=== PATIENT | female | born 1960 | race Caucasian/White ===

== ENCOUNTER → 2023-03-11 | Outpatient (CLI) | payer BC ==
[2023-03-11 15:57] LABS: INR 0.9 (<1.2); Partial Thromboplastin Time 25.4 sec (22.0-30.0); Prothrombin Time 9.8 sec (9.0-12.0)
[2023-03-11 21:42] LABS: HCT 42.2 % (37.2-46.3); HGB 12.6 d/dL (12.0-15.0); MCH 26.5 pg (27.0-32.0); MCHC 29.9 d/dL (32.0-37.0); MCV 88.8 FL (80.0-97.0); Mean Platelet Volume 10.7 FL (9.5-12.2); NRBC Per 100 WBC 0 X 10*3/uL (0.00-0.01); Platelet Count 365 X 10*3/uL (140-440); RBC 4.75 X 10*6/uL (4.10-5.20); RDW 14.7 % (11.5-14.5); WBC 8.75 X 10*3/uL (4.50-10.00)
[2023-03-12 02:37] LABS: ALT 15 U/L (8-44); AST 11 U/L (13-35); Albumin 4.7 d/dL (3.8-4.9); Albumin/Globulin Ratio 1.68 Ratio (1.60-3.17); Alkaline Phosphatase 144 U/L (41-126); Calcium 10.2 mg/dL (8.7-10.3); Carbon Dioxide 29.8 mmol/L (21.6-31.8); Chloride 99 mmol/L (96-109); Globulin 2.8 d/dL (1.6-3.3); Glucose 101 mg/dL (70-110); Potassium 4.1 mmol/L (3.5-5.5); Sodium 143 mmol/L (135-145); Total Bilirubin <0.2 mg/dL (0.3-1.2); Total Protein 7.5 d/dL (6.2-8.2)
== END | disposition home or self-care (01) ==
LOC: LABPAT 13:46
PROVIDERS: ATTEND Orthopaedic Surgery
DX: Z01.812 Encounter for preprocedural laboratory examination (principal); M17.12 Unilateral primary osteoarthritis, left knee; I51.7 Cardiomegaly; R94.31 Abnormal electrocardiogram [ECG] [EKG]
CPT/HCPCS: 80053; 85027; 85610; 85730; 87070; 93005

== ENCOUNTER 2023-03-22 10:05 | Observation (INO) | payer BC ==
[~2023-03-22 10:05] MED LIST: ACETAMINOPHEN TAB 500 MG TAB PO PRN; GABAPENTIN 300 MG CAP PO PRN; HYDROmorphone 0.5 MG/0.5 ML SYRINGE IVP PRN; MELOXICAM 7.5 MG TAB PO PRN; ONDANSETRON 4 MG/2 ML VIAL IVP ONE; TRANEXAMIC 1,000 MG/100ML-NACL 1,000 MG in SALINE 1 100ML.BAG IVPB PRN
[2023-03-22] MEDS: LACTATED RINGERS 1,000 ML IV SCH (11:08)
[2023-03-22] MEDS ORDERED: MIDAZOLAM 2 MG/2 ML VIAL IVP ONE (11:39)
[2023-03-22] MEDS ORDERED: HYDROmorphone 0.5 MG/0.5 ML SYRINGE IVP PRN ×2 (12:08)
[2023-03-22] MEDS ORDERED: HYDROmorphone 1 MG/ML 1 ML SYRINGE IVP PRN (12:08)
[2023-03-22] MEDS ORDERED: ONDANSETRON 4 MG/2 ML VIAL IVP PRN (12:08)
[2023-03-22] MEDS ORDERED: NA PHOS,M-B/NA PHOS,DI-BA 133 ML ENEMA RECTAL PRN (12:08)
[2023-03-22] MEDS ORDERED: bisacodyL 10 MG SUPP RECTAL PRN (12:08)
[2023-03-22] MEDS ORDERED: NALOXONE 0.4 MG/ML 1 ML VIAL IV PRN (12:08)
[2023-03-22] MEDS ORDERED: MAGNESIUM HYDROXIDE 2,400 MG/30 ML CUP PO PRN (12:08)
[2023-03-22] MEDS ORDERED: HYDROcodone/APAP 7.5-325MG 1 EACH TAB PO PRN ×2 (12:10)
[2023-03-22] MEDS ORDERED: KETAMINE 10 MG/ML 20 ML VIAL ONE (12:16)
[2023-03-22] MEDS ORDERED: fentaNYL (PF) 50 MCG/ML 2 ML AMP ONE (12:16)
[2023-03-22] MEDS ORDERED: TRANEXAMIC 1,000 MG/100ML-NACL PREMIX BAG ONE (12:16)
[2023-03-22] MEDS ORDERED: MIDAZOLAM 2 MG/2 ML VIAL ONE (12:16)
[2023-03-22] MEDS ORDERED: PROPOFOL 10 MG/ML 20 ML VIAL IV ONE (12:16)
[2023-03-22] MEDS ORDERED: ceFAZolin 1,000 MG in SODIUM CHLORIDE 0.9% 1,000 ML IRRIGATION ONE (12:21)
--- NOTE | 2023-03-22 13:35 | P.OP ---
Date of Procedure: 03/22/23 Preoperative Diagnosis: Severe osteoarthritis left knee Postoperative Diagnosis: Severe osteoarthritis left knee Procedure(s) Performed: Left total knee arthroplasty Implants: Pereira [employer] Nephew Journey II CR Oxinium cruciate retaining femoral component size 5, left [employer] Journey nonporous tibial baseplate size 3, left [employer] Journey II, XLPE Deep Dished articular insert, size 12 mm, Size 3-4, left [employer] Journey Sandra II resurfacing patellar component, oval, 29 mm All components were cemented using Palacos R bone cement The articulation is Oxinium on polyethylene Anesthesia: spinal Surgeon: Rufino Peña Clinical Advisor #1: Vicenta Guardado Estimated Blood Loss (ml): 30 Pathology: none sent Condition: stable Disposition: PACU Indications for Procedure: The patient's knee is end-stage, and conservative management has failed. The operation of knee replacement has been discussed at length in the office, as well as potential risks and complications. These are inclusive of, but not limited to: Infection, bleeding, scarring, discomfort, stiffness, blood vessel and nerve damage, need for further surgery, failure to relieve symptoms, persistence, recurrence, or worsening of problems, loosening, dislocation, wear, blood clot, pulmonary embolism, , gait dysfunction, stiffness, and other risks as discussed in the office. Patient elects to proceed and the consent form has been signed. Operative Findings: The operative findings are consistent with severe osteoarthritis the left knee Description of Procedure: The patient was seen in the preoperative area, the consent was reviewed and the operative site was marked with a skin marker. The patient verified the procedure and the operative site. An adductor canal pain catheter and an iPACK block were placed by anesthesia in the preoperative area. The patient was then brought to the operating room and positioned on the operating room table in the supine position. Preoperative antibiotics and a gram of tranexamic acid were given intravenously. A spinal anesthetic was administered by the anesthesia department. Care was taken to make sure that all pressure points were adequately padded. A tourniquet was placed on the upper thigh and the lower extremity was prepped with ChloraPrep and draped in usual sterile fashion. A universal time-out was then performed which confirmed the patient's name, surgical site, ALLERGIES, and consent. The lower extremity was then exsanguinated and tourniquet was inflated to 250 mmHg. A standard anterior midline approach to the knee was performed. The skin and subcutaneous tissue were sharply dissected down to the patellar tendon. A medial parapatellar arthrotomy was then performed. The knee was then extended, the patellar was everted, and the knee was flexed. The infra-patellar fat pad was removed in order to enhance exposure. The anterior horns of both menisci were excised, and a release was performed to the posterior medial aspect of the knee. On gross visual inspection, there was complete loss of articular cartilage in the medial and patellofemoral joint spaces. There was also significant cartilage damage in the lateral compartment. There were multiple periarticular osteophytes globally about the knee which were then removed with a Ronguer. The femoral canal was then opened with the 9.5 mm intramedullary drill. The 8 mm intramedullary alla was then inserted into the femoral canal with the distal femoral cutting guide set for 5 of valgus. The distal femoral cutting block was then pinned in place. The intramedullary alla was then removed, and the distal femur was then cut. The cutting block was then removed and the cut was checked for symmetry. The resected bone was then measured to c onfirm the appropriate distal femoral resection. Next, the sizing guide was then placed and set for 3 external rotation based off of the epicondylar axis and [place]'s line. Pins were then placed and the drill holes, and the femur was sized with the sizing stylus. The pins were then removed, and the sizing guide was then removed. The spikes of the appropriate size femoral block was then placed into the predrilled holes, and malleted into place. Two 45 mm pins were then placed into the fixation holes on the cutting block. An cami wing was then used to ensure there would be no notching with the anterior cut. The anterior condyles were cut without notching. The anterior chord cut was then performed, followed by the posterior cut, posterior chamfer cut, and the anterior chamfer cut. The collateral ligaments were protected during the entire process. The cutting block was then removed. Any remaining bone and osteophytes were removed from the femur with a Ronguer. Attention was then directed to the tibia. The remaining ACL was removed with a Ronguer, and the tibia was then gently subluxed forward with a large bent knee retractor. Any remaining menisci were excised. The posterior lateral corner was cauterized in order to coagulate the lateral geniculate artery. The extra medullary tibial cutting guide was then placed, set for the appropriate rotation, slope, and depth of resection. The proximal tibia cutting guide was then pinned in place. Proximal tibia was then cut and sized. A curved osteotome was then used to remove any posterior osteophytes from the distal femur. The femoral trial was placed. A narrow saw blade was then used to remove the anterior intracondylar femoral bone. The CR notch trial was then placed. The tibial trial was placed with the appropriate-sized insert. The knee was able to fully extend and flex to 130 and was stable throughout all range of motion. The knee was then extended and the patella was everted. Patella was then measured, and then using an osteotomy guide, the patella was cut at the appropriate level. The patellar component was sized. The patellar drill guide was placed and the patella was drilled. The patella trial was then placed. The knee was then taken through range of motion with the patella trial and the patella tracked normally using the no thumbs technique. The patella trial was then removed. The knee was then flexed and lug holes were drilled through the femoral trial and the femoral trial was then removed. The tibial was then re- exposed, and the tibial broach guide was then pinned in place after it was set for the appropriate rotation to allow for the most coverage without overhang. The tibia was then reamed and broached. The femoral canal was plugged with autologous bone. The cut surfaces of bone were then irrigated with pulsatile lavage. The knee was also irrigated with Irrisept solution. The components were then opened, the cement was mixed. Cement was placed on the backside of the femoral, tibial, and patellar components. Cement was then applied to the tibial surface and pressurized into the surface using finger pressurization technique. The tibial component was then applied and excess cement was removed after it was impacted securely noted to be flush with the cut surface. In similar fashion, the cement was applied to the cut femoral surface, pressurized and using finger pressurization the component was impacted in place. Excess cement was removed. The polyethylene spacer was then implanted and locked into position. Patellar component was then applied in a similar technique and the patellar clamp was used to hold patella in place while the cement hardened. The knee was held in full extension while the cement hardened. Once the cement had fully hardened, the knee was reinspected. Any other cement extrusion was removed the final range of motion testing showed range of motion from 0-130 with excellent stability, both medial and laterally and appropriate alignment of the leg. Patella tracked normally. After the cemented hardened, the tourniquet was released and hemostasis was obtained. A second gram of transexamic acid was given intravenously. The knee was again irrigated. The knee was again taken through range of motion and found to be stable throughout all range of motion of 0-130, and the patella tracked normally. The fascia was then closed with 0 Vicryl followed by #2 strata fix suture. The subcutaneous tissue was closed with 3-0 Vicryl and 3-0 strata fix. Exofin glue was used for the skin and placed with the knee in flexion. After the glue had dried, and Optafoam silver impregnated dressing was applied. A lightly compressive dressing was applied using web roll and Roshan wrap. Patient was then transferred to the stretcher and taken to recovery room in stable condition. Sponge and needle counts were correct. The bookkeeping assistant MAX Higginbotham was required due the complexity surgery and the need for a skilled regional vice president surgical sales. She assisted in positioning, draping, retraction, and closure of the wound.
[2023-03-22] MEDS ORDERED: LACTATED RINGERS 1,000 ML IV ONE (14:05)
[2023-03-22] MEDS ORDERED: ROPIVACAINE 1,100 MG, SODIUM CHLORIDE 0.9% 500 ML 330 ML, EMPTY PAIN BALL 1 EACH MISCELLANE PRN ×2 (14:24)
--- NOTE | 2023-03-22 14:49 | P.ANPRN ---
Procedure Note - Anesthesia - Nerve Block Performed Left Adductor Canal Infusion Time Out Performed: Yes Date of Procedure: 03/22/23 Procedure Start Time: 11:38 Procedure Stop Time: 11:48 Location of Patient: PreOp Indication: Acute Post-Operative Pain, Analgesia, Requested by Surgeon Sedation Type: Sedate with meaningful contact maintained Preparation: Sterile Prep Position: Supine Catheter: Indwelling Needle Types: Pajunk Needle Gauge: 21 Ultrasound used to visualize needle placement: Yes Ultrasound used to observe medication spread: Yes Injectate: 0.5% Ropivacaine (see comment for volume) (20cc) Blood Aspirated: No Pain Paresthesia on Injection Noted: No Resistance on Injection: Normal Image Stored and Saved: Yes Events: Uneventful and Well Tolerated
[2023-03-22] MEDS: SODIUM CHLORIDE 0.9% 1,000 ML IV SCH (15:31)
--- NOTE | 2023-03-22 16:31 | XR ---
EXAMINATION TYPE: XR knee limited LT DATE OF EXAM: 03/22/2023 4:19 PM INDICATION: Patient age:Female; 63 years old; Reason for study: Evaluation for Postop abnormality and alignment; COMPARISON: None. TECHNIQUE: The Left knee(s) was examined in Frontal, lateral and oblique projections. FINDINGS: Status post total knee arthroplasty changes with hardware in appropriate alignment and in tact. No evidence of fracture. Subcutaneous lucencies and lucencies within the joint consistent with surgical changes. IMPRESSION: Status post total knee arthroplasty changes with hardware intact and appropriate alignment. No fractu res identified.
--- NOTE | 2023-03-22 17:04 | P.CONS ---
History of Present Illness - Reason for Consult Consult date: 03/22/23 Requesting physician: Rufino Peña - History of Present Illness Patient is a 63-year-old female with a history of hypothyroidism, hypertension, asthma, fibromyalgia, and osteoarthritis who presented for elective left total knee arthroplasty. Patient seen and examined at bedside. She is doing well postoperatively. Preoperatively she was using a walking stick for long distances. She denies any lightheadedness, dizziness, nausea, vomiting. Pain is well controlled though her leg is still asleep. Vital signs reviewed General: nontoxic, no distress, appears at stated age Derm: warm, dry Eyes: EOMI, no lid lag, anicteric sclera, pupils equal round reactive to light ENT: Nose and ears atraumatic, no thrush, no pharyngeal erythema Cardiovascular: S1S2 reg, no murmur, positive posterior tibial pulse bilateral, Lungs: Decreased breath sounds bilateral, no rhonchi, no rales, no wheeze, no accessory muscle use Ext: no gross muscle atrophy, no contractures, compression stockings in place bilateral lower extremities Neuro: CN II-XII grossly intact, no focal neuro deficits Psych: Alert, oriented, appropriate affect Assessment: 63-year-old female status post left total knee arthroplasty Hypertension -Currently controlled -Resume home HCTZ 25 mg daily, spironolactone 25 mg daily, losartan 25 mg daily -Follow blood pressures Hypothyroidism -Resume Synthroid 50 g daily GERD -Resume PPI Chronic: Fibromyalgia Depression Asthma without exacerbation Imaging: Left knee x-ray: Status post total knee Data Review: Vitals reviewed pulse 71, respirations 17, blood pressure 145/72, O2 sats 94% on room air Labs reviewed hemoglobin 12.6, hematocrit 42.2, creatinine 1, glucose 101 Thank you for allowing us to participate in the care of this pleasant patient. Do not hesitate to contact us with questions. Someone can be reached from the [facility] hospitalist group all hours of the day at [phone] or via [employer]. This dictation was prepared using [employer] voice recognition software. Though every attempt is made to correct errors during dictation some may still exist. Past Medical History Past Medical History: Fibromyalgia Additional Past Medical History / Comment(s): restless leg ,chest pain told not her heart, History of Any Multi-Drug Resistant Organisms: None Reported Past Surgical History: Cholecystectomy, Hysterectomy Additional Past Surgical History / Comment(s): colonsoscopy Past Anesthesia/Blood Transfusion Reactions: No Reported Reaction Additional Past Anesthesia/Blood Transfusion Reaction / Comm: no blood tx hx Past Psychological History: Depression Smoking Status: Never smoker Past Alcohol Use History: None Reported Past Drug Use History: None Reported - Past Family History Brother(s) Family Medical History: Cancer Additional Family Medical History / Comment(s): lung Medications and Allergies Home Medications Medication Instructions Recorded Confirmed Type DULoxetine HCL [Cymbalta] 60 mg PO DAILY 03/14/23 03/22/23 History Esomeprazole Magnesium [NexIUM] 20 mg PO DAILY 03/14/23 03/22/23 History Artur Restful Leg(Ukn) 1 tab PO HS 03/14/23 03/22/23 History Levothyroxine Sodium [Synthroid] 50 mcg PO DAILY 03/14/23 03/22/23 History Losartan Potassium [Cozaar] 25 mg PO DAILY 03/14/23 03/22/23 History Montelukast [Singulair] 10 mg PO HS 03/14/23 03/22/23 History Spironolactone 25 mg PO HS 03/14/23 03/22/23 History hydroCHLOROthiazide 25 mg PO DAILY 03/14/23 03/22/23 History lamoTRIgine [LaMICtal] 300 mg PO DAILY 03/14/23 03/22/23 History Aspirin 325 mg PO BID #60 tab 03/22/23 Rx HYDROcodone/APAP 7.5-325MG [[place] 1 - 2 tab PO Q6H PRN #32 tab 03/22/23 Rx 7.5-325] Sennosides [Senokot] 2 tab PO DAILY PRN #60 tablet 03/22/23 Rx Allergies Allergy/AdvReac Type Severity Reaction Status Date / Time methylprednisolone Allergy Rash/Hives Verified 03/22/23 10:40 [From Medrol] azithromycin AdvReac Rash/Hives Verified 03/22/23 10:40 Penicillins AdvReac Rash/Hives Verified 03/22/23 10:40 Physical Exam Osteopathic Statement: *. No significant issues noted on an osteopathic structural exam other than those noted in the History and Physical/Consult. Vitals: Vital Signs Temp Pulse Resp BP Pulse Ox 03/22/23 14:50 71 17 145/72 94 L 03/22/23 14:48 97.6 F 67 17 118/80 98 03/22/23 14:35 69 19 150/84 95 03/22/23 14:20 62 16 140/81 96 03/22/23 14:05 97 F L 78 14 134/77 99 03/22/23 11:50 74 16 130/58 98 03/22/23 11:00 97.4 F L 81 16 144/69 98 Intake and Output 03/22/23 03/22/23 03/22/23 06:59 14:59 22:59 Intake Total 551 Output Total 30 Balance 521 Intake: IV 551 Output: Estimated Blood Loss 30 Other: Weight 111.3 kg
[2023-03-22] MEDS: ASPIRIN 325 MG TAB PO SCH (19:58)
[2023-03-22] MEDS ORDERED: LOSARTAN 25 MG TAB PO SCH (21:00)
[2023-03-22] MEDS ORDERED: SPIRONOLACTONE 25 MG TAB PO SCH (21:00)
[2023-03-22] MEDS ORDERED: [UNRECOGNIZED DRUG - OTHER] PO SCH (21:00)
[2023-03-22] MEDS ORDERED: DULoxetine HCL 60 MG CAPSULE.DR PO SCH (21:00)
[2023-03-22] MEDS ORDERED: MONTELUKAST 10 MG TAB PO SCH (21:00)
[2023-03-22] MEDS ORDERED: SENNOSIDES-DOCUSATE SODIUM 1 EACH TAB PO SCH (21:00)
[2023-03-22] MEDS: lamoTRIgine 100 MG TAB PO SCH (21:35)
[2023-03-22] MEDS ORDERED: HYDROcodone/APAP 7.5-325MG 1 EACH TAB ONE (23:41)
[2023-03-23] MEDS ORDERED: HYDROmorphone 0.5 MG/0.5 ML SYRINGE ONE (02:26)
[2023-03-23] MEDS ORDERED: HYDROmorphone 1 MG/ML 1 ML SYRINGE ONE (02:26)
[2023-03-23] MEDS: SODIUM CHLORIDE 0.9% 1,000 ML IV SCH (05:17)
[2023-03-23] MEDS ORDERED: LEVOTHYROXINE 50 MCG TAB PO SCH (06:30)
[2023-03-23] MEDS: LACTATED RINGERS 1,000 ML IV SCH (07:20)
--- NOTE | 2023-03-23 07:41 | P.DS ---
Providers Expected date of discharge: 03/23/23 Attending physician: Rufino Peña Consults: 03/22/23 12:08 Consult Physician Routine Consulting Provider: Sidra Sow Consult Reason/Comments: medical management Do you want consulting provider notified?: Yes Primary care physician: Essence Jhaveri MD - Discharge Diagnosis(es) (1) Primary localized osteoarthritis of left knee Current Visit: Yes Status: Acute (2) Status post total left knee replacement Current Visit: Yes Status: Acute Hospital Course: This is a 63-year-old female who was last seen with complaint of continued left knee pain. The patient has a known history of degenerative arthritis of the left knee and presents to discuss surgical options. After discussion and consideration the patient elects to proceed with total left knee arthroplasty. The patient is seen preoperatively by her primary care physician and cleared for surgery. The patient is admitted to [facility] for total left knee arthroplasty. The procedures performed without complication or sequelae. He is doing well postoperatively. Vital signs are stable at discharge. Labs are stable at discharge. the patient is ambulating well with walker with minimal assistance. The patient is discharged to home on postop day #1 pending medical clearance. Please see orders and refer to the med rec for accurate list of medications. Patient Condition at Discharge: Good Plan - Discharge Summary Discharge Rx Participant: No New Discharge Prescriptions: New Ketorolac [Toradol] 10 mg PO Q6HR PRN #20 tab PRN Reason: Pain Aspirin 325 mg PO BID #60 tab HYDROcodone/APAP 7.5-325MG [[place] 7.5-325] 1 - 2 tab PO Q6H PRN #32 tab PRN Reason: Pain Sennosides [Senokot] 2 tab PO DAILY PRN #60 tablet PRN Reason: Constipation No Action hydroCHLOROthiazide 25 mg PO DAILY Spironolactone 25 mg PO HS Esomeprazole Magnesium [NexIUM] 20 mg PO DAILY DULoxetine HCL [Cymbalta] 60 mg PO DAILY Montelukast [Singulair] 10 mg PO HS Levothyroxine Sodium [Synthroid] 50 mcg PO DAILY lamoTRIgine [LaMICtal] 300 mg PO DAILY Losartan Potassium [Cozaar] 25 mg PO DAILY Artur Restful Leg(Ukn) 1 tab PO HS Discharge Medication List DULoxetine HCL [Cymbalta] 60 mg PO DAILY 03/14/23 [History] Esomeprazole Magnesium [NexIUM] 20 mg PO DAILY 03/14/23 [History] Artur Restful Leg(Ukn) 1 tab PO HS 03/14/23 [History] Levothyroxine Sodium [Synthroid] 50 mcg PO DAILY 03/14/23 [History] Losartan Potassium [Cozaar] 25 mg PO DAILY 03/14/23 [History] Montelukast [Singulair] 10 mg PO HS 03/14/23 [History] Spironolactone 25 mg PO HS 03/14/23 [History] hydroCHLOROthiazide 25 mg PO DAILY 03/14/23 [History] lamoTRIgine [LaMICtal] 300 mg PO DAILY 03/14/23 [History] Aspirin 325 mg PO BID #60 tab 03/22/23 [Rx] HYDROcodone/APAP 7.5-325MG [[place] 7.5-325] 1 - 2 tab PO Q6H PRN #32 tab 03/22/23 [Rx] Sennosides [Senokot] 2 tab PO DAILY PRN #60 tablet 03/22/23 [Rx] Ketorolac [Toradol] 10 mg PO Q6HR PRN #20 tab 03/23/23 [Rx] Follow up Appointment(s)/Referral(s): Rufino Peña DO [Doctor of Osteopathic Medicine] - 2 Weeks Activity/Diet/Wound Care/Special Instructions: Weightbearing as tolerated with a walker. CPM 5-6h daily as tolerated. Leave dressing intact. Dressing may be removed by home care nurse or by patient in 7 days. Then change dressing twice daily until follow up. May shower with initial dressing intact and after removal. If dressing become saturated, please remove. Recommend use of compression stockings daily until follow up to help prevent swelling and blood clots. May remove at night before sleeping. Please take aspirin 325mg twice daily for 30 days to prevent blood clots. Please follow up with [facility] and call with any questions or concerns, . Discharge Disposition: HOME WITH HOME HEALTH SERVICES
[2023-03-23 07:43] VITALS: BP 132/70; PULSE 87; RESP 18; TEMP 98.2
--- NOTE | 2023-03-23 07:46 | P.PN ---
Progress Note - Text Progress Note Date: 03/23/23 patient was seen and evaluated at bedside. Status post postoperative day 1 for left side total knee arthroplasty patient had adductor canal catheter for postop pain control. Patient rated pain at rest 5-6 out of 10 in severity. Patient describes pain is aching, throbbing type on the sides of the knee and back of the knee. Patient started walking with support. With activity patient pain levels are 8-9 out of 10 in severity. With the help of oral pain medications pain levels are tolerable. Patient denied any weakness/ numbness in lower extremities. patient denied any fever, pain over the catheter site. Physical exam: Patient vital signs stable Patient is alert awake oriented 3 responding to all questions appropriately Examination of the catheter site showed dressing intact, no leaking fluid around the catheter, no redness, no tenderness over the catheter insertion area. plan: status post postoperative day 1 for left-sided total knee arthroplasty with adductor canal catheter for pain control. Patient was discussed to continue the medication at the rate of 8 mL per hour until the pump is completely empty and instructed the patient how to discontinue the catheter.
[2023-03-23 08:19] LABS: HCT 35.5 % (34.0-46.0); HGB 11.1 gm/dL (11.4-16.0); Hypochromasia Moderate; MCH 27.3 pg (25.0-35.0); MCHC 31.2 g/dL (31.0-37.0); MCV 87.6 fL (80.0-100.0); Mean Platelet Volume 8.1; Platelet Count 261 k/uL (150-450); RBC 4.05 m/uL (3.80-5.40); RDW 14.4 % (11.5-15.5); WBC 8.9 k/uL (3.8-10.6)
[2023-03-23] MEDS: lamoTRIgine 100 MG TAB PO SCH (08:25)
[2023-03-23] MEDS: ASPIRIN 325 MG TAB PO SCH (08:25)
[2023-03-23] MEDS ORDERED: hydroCHLOROthiazide 25 MG TAB PO SCH (09:00)
[2023-03-23] MEDS ORDERED: lamoTRIgine 100 MG TAB PO SCH (09:00)
[2023-03-23] MEDS ORDERED: LOSARTAN 25 MG TAB PO SCH (09:00)
[2023-03-23] MEDS ORDERED: DULoxetine HCL 60 MG CAPSULE.DR PO SCH (09:00)
[2023-03-23] MEDS ORDERED: PANTOPRAZOLE 40 MG TABLET PO SCH (09:00)
--- NOTE | 2023-03-23 10:14 | P.PN ---
Subjective Progress Note Date: 03/23/23 Patient is a 63-year-old female with a history of hypothyroidism, hypertension, asthma, fibromyalgia, and osteoarthritis who presented for elective left total knee arthroplasty. Patient seen and examined at bedside. She is doing okay this morning. She has already been up to the bathroom. Currently her pain is a 3-4 out of 10 last night she had difficulty sleeping because it was closer to an 8 out of 10. She has not yet worked with physical therapy. She denies any chest pain, shortness breath, nausea, vomiting. We discussed that she will be on aspirin twice daily as DVT prophylaxis for 30 days and that this may exacerbate her acid reflux symptoms that she can up her Nexium to 40 mg twice daily as needed. Vital signs reviewed General: nontoxic, no distress, appears at stated age Cardiovascular: S1S2 reg, no murmur, positive posterior tibial pulse bilateral, Lungs: Decreased breath sounds bilateral, no rhonchi, no rales , no accessory muscle use Ext: no gross muscle atrophy, trace edema left lower extremity, no contractures Neuro: CN II-XI grossly intact, no focal neuro deficits Psych: Alert, oriented, appropriate affect Assessment/plan: 63-year-old female status post left total knee arthroplasty Hypertension -Currently controlled -Continue home HCTZ 25 mg daily, spironolactone 25 mg daily, losartan 25 mg daily -Follow blood pressures Hypothyroidism -Synthroid 50 g daily GERD - On discharge Nexium can be increased to 40 mg twice daily as needed or can take pepcid id GERD symptoms increase with ASA. - Discharge med rec addressed. Patient medically optimized for discharge at the discretion of ortho. Instructions added to D/C to increase nexium if needed. Chronic: Fibromyalgia Depression Asthma without exacerbation Imaging: None new Data Review: Vital signs reviewed. Temperature 98.2, pulse 87, respirations 18, blood p ressure 132/70, O2 sat 91% on room air. Laboratory analysis reviewed and remarkable for hemoglobin of 11.1 (down from 12.6). Thank you for allowing us to participate in the care of this pleasant patient. Do not hesitate to contact us with questions. Someone can be reached from the [facility] hospitalist group all hours of the day at [phone] or via [employer]. This dictation was prepared using [employer] voice recognition software. Though every attempt is made to correct errors during dictation some may still exist. Objective - Vital Signs Vital signs: Vital Signs Temp 98.2 F 03/23/23 07:00 Pulse 87 03/23/23 07:00 Resp 18 03/23/23 07:00 BP 132/70 03/23/23 07:00 Pulse Ox 91 L 03/23/23 07:00 FiO2 Intake & Output 03/22/23 03/23/23 03/23/23 18:59 06:59 18:59 Intake Total 551 200 Output Total 30 Balance 521 200 Weight 111.3 kg Intake: IV 551 Oral 200 Output: Urine 0 Estimated Blood Loss 30 Other: Voiding Method Toilet Toilet # Voids 1 - Labs CBC & Chem 7: 03/23/23 06:44 Labs: Abnormal Lab Results - Last 24 Hours (Table) 03/23/23 Range/Units 06:44 Hgb 11.1 L (11.4-16.0) gm/dL
== END 2023-03-23 12:26 ==
LOC: OR 10:05 → 4SSUR 14:05 → OR 03-23 09:08 → 4SSUR 03-23 09:08
PROVIDERS: ADMIT Orthopaedic Surgery; ATTEND Orthopaedic Surgery
DX: M17.12 Unilateral primary osteoarthritis, left knee (principal); M21.162 Varus deformity, not elsewhere classified, left knee; I10 Essential (primary) hypertension; E03.9 Hypothyroidism, unspecified; M79.7 Fibromyalgia; J45.909 Unspecified asthma, uncomplicated; K21.9 Gastro-esophageal reflux disease without esophagitis; G25.81 Restless legs syndrome; F32.A Depression, unspecified; Z79.890 Hormone replacement therapy; Z79.899 Other long term (current) drug therapy; Z88.0 Allergy status to penicillin; Z88.1 Allergy status to other antibiotic agents; Z88.8 Allergy status to other drugs, medicaments and biological substances; Z90.49 Acquired absence of other specified parts of digestive tract; Z90.710 Acquired absence of both cervix and uterus; Z98.890 Other specified postprocedural states; Z80.1 Family history of malignant neoplasm of trachea, bronchus and lung
CPT/HCPCS: 97161; 64448; 85027; 73560; 27447; G0378; C1713; C1776; C1751; J2250; J0690 ×3; J2405; J3010; J1170 ×3; J2795; J2704

== ENCOUNTER → 2023-08-29 | Outpatient (CLI) | payer BC ==
[2023-08-29 13:40] LABS: Partial Thromboplastin Time 25.1 sec (22.0-30.0)
[2023-08-29 16:06] LABS: INR 0.9 (<1.2); Prothrombin Time 10.1 sec (10.0-12.5)
[2023-08-29 16:26] LABS: HCT 41.6 % (37.2-46.3); HGB 12.3 g/dL (12.0-15.0); MCH 25.9 pg (27.0-32.0); MCHC 29.6 g/dL (32.0-37.0); MCV 87.6 FL (80.0-97.0); Mean Platelet Volume 10.2 FL (9.5-12.2); NRBC Per 100 WBC 0 X 10*3/uL (0.00-0.01); Platelet Count 304 X 10*3/uL (140-440); RBC 4.75 X 10*6/uL (4.10-5.20); WBC 6.04 X 10*3/uL (4.50-10.00)
[2023-08-29 16:51] LABS: ALT 12 U/L (8-44); AST 13 U/L (13-35); Albumin 4.5 g/dL (3.8-4.9); Albumin/Globulin Ratio 1.61 Ratio (1.60-3.17); Alkaline Phosphatase 145 U/L (41-126); Bacteria,Urine 3+ (None Seen); Calcium 10.2 mg/dL (8.7-10.3); Carbon Dioxide 26.9 mmol/L (21.6-31.8); Chloride 100 mmol/L (96-109); Globulin 2.8 g/dL (1.6-3.3); Glucose 116 mg/dL (70-110); Potassium 3.7 mmol/L (3.5-5.5); Sodium 142 mmol/L (135-145); Total Bilirubin <0.2 mg/dL (0.3-1.2); Total Protein 7.3 g/dL (6.2-8.2)
[2023-08-29 16:52] LABS: Appearance,Urine Cloudy (Clear); Bilirubin,Urine Negative (Negative); Blood,Urine Negative (Negative); Color,Urine Dark Yellow (Yellow); Ketones,Urine Trace (Negative); Nitrite,Urine Negative (Negative); Specific Gravity,Urine 1.035 (1.001-1.030)
== END | disposition home or self-care (01) ==
LOC: LABPAT 12:15
PROVIDERS: ATTEND Orthopaedic Surgery
DX: Z01.812 Encounter for preprocedural laboratory examination (principal); Z22.322 Carrier or suspected carrier of Methicillin resistant Staphylococcus aureus; M17.11 Unilateral primary osteoarthritis, right knee
CPT/HCPCS: 36415; 80053; 81001; 85027; 85610; 85730; 87070; 93005

== ENCOUNTER 2023-09-05 06:49 | Day surgery (SDC) | payer BC ==
[2023-08-29 13:59] VITALS: BMI 40.5
[~2023-09-05 06:49] MED LIST changes: +CLINDAMYCIN 900 MG in DEXTROSE 5% IN WATER 50 ML IVPB PRN; -HYDROmorphone 0.5 MG/0.5 ML SYRINGE IVP PRN; -ONDANSETRON 4 MG/2 ML VIAL IVP ONE
[2023-09-05] MEDS ORDERED: MIDAZOLAM 2 MG/2 ML VIAL IV PRN (07:14)
[2023-09-05] MEDS ORDERED: SCOPOLAMINE 1 MG/72 HR PATCH TRANSDERM ONE (07:14)
[2023-09-05] MEDS ORDERED: ONDANSETRON 4 MG/2 ML VIAL IVP ONE (07:14)
[2023-09-05] MEDS ORDERED: HYDROmorphone 0.5 MG/0.5 ML SYRINGE IVP PRN ×2 (07:14→08:52)
[2023-09-05] MEDS ORDERED: LACTATED RINGERS 1,000 ML IV SCH (07:14)
[2023-09-05] MEDS ORDERED: DEXAMETHASONE SOD PHOSPHATE 4 MG/ML 1 ML VIAL IVP ONE (07:54)
[2023-09-05] MEDS ORDERED: fentaNYL (PF) 50 MCG/ML 2 ML AMP IVP ONE (08:14)
[2023-09-05] MEDS ORDERED: MIDAZOLAM 2 MG/2 ML VIAL IVP ONE (08:14)
[2023-09-05] MEDS ORDERED: ROPIVACAINE 1,100 MG, SODIUM CHLORIDE 0.9% 500 ML 330 ML, EMPTY PAIN BALL 1 EACH MISCELLANE PRN ×2 (08:47)
[2023-09-05] MEDS ORDERED: NALOXONE 0.4 MG/ML 1 ML VIAL IV PRN (08:52)
[2023-09-05] MEDS ORDERED: NA PHOS,M-B/NA PHOS,DI-BA 133 ML ENEMA RECTAL PRN (08:52)
[2023-09-05] MEDS ORDERED: MAGNESIUM HYDROXIDE 2,400 MG/30 ML CUP PO PRN (08:52)
[2023-09-05] MEDS ORDERED: bisacodyL 10 MG SUPP RECTAL PRN (08:52)
[2023-09-05] MEDS ORDERED: ONDANSETRON 4 MG/2 ML VIAL IVP PRN (08:52)
[2023-09-05] MEDS ORDERED: HYDROmorphone 1 MG/ML 1 ML SYRINGE IVP PRN (08:52)
[2023-09-05] MEDS ORDERED: HYDROcodone/APAP 7.5-325MG 1 EACH TAB PO PRN (08:54)
--- NOTE | 2023-09-05 08:55 | P.ANPRN ---
Procedure Note - Anesthesia - Nerve Block Performed Right Adductor Canal Infusion Time Out Performed: Yes Date of Procedure: 09/05/23 Procedure Start Time: 08:30 Procedure Stop Time: 08:40 Location of Patient: PreOp Indication: Acute Post-Operative Pain, Analgesia, Requested by Surgeon Sedation Type: Sedate with meaningful contact maintained Preparation: Sterile Prep Position: Supine Catheter: Indwelling Needle Types: On-Q Needle Gauge: 21 Ultrasound used to visualize needle placement: Yes Ultrasound used to observe medication spread: Yes Injectate: 0.5% Ropivacaine (see comment for volume) (Ropivacaine 15 ml+NS 5ml) Blood Aspirated: No Pain Paresthesia on Injection Noted: No Resistance on Injection: Normal Image Stored and Saved: Yes Events: Uneventful and Well Tolerated
--- NOTE | 2023-09-05 08:57 | P.ANPRN ---
Procedure Note - Anesthesia - Nerve Block Performed Right Danielck Single Time Out Performed: Yes Date of Procedure: 09/05/23 Procedure Start Time: 08:41 Procedure Stop Time: 08:46 Location of Patient: PreOp Indication: Acute Post-Operative Pain, Analgesia, Requested by Surgeon Sedation Type: Sedate with meaningful contact maintained Preparation: Sterile Prep Position: Left Lateral Catheter: None Needle Types: Pajunk Needle Gauge: 21 Ultrasound used to visualize needle placement: Yes Ultrasound used to observe medication spread: Yes Injectate: 0.5% Ropivacaine (see comment for volume) ([id number] 10ml) Blood Aspirated: No Pain Paresthesia on Injection Noted: No Resistance on Injection: Normal Image Stored and Saved: Yes Events: Uneventful and Well Tolerated
[2023-09-05] MEDS ORDERED: fentaNYL (PF) 50 MCG/ML 2 ML AMP ONE (09:11)
[2023-09-05] MEDS ORDERED: MIDAZOLAM 2 MG/2 ML VIAL ONE (09:11)
[2023-09-05] MEDS ORDERED: TRANEXAMIC 1,000 MG/100ML-NACL PREMIX BAG ONE (09:11)
[2023-09-05] MEDS ORDERED: PROPOFOL 10 MG/ML 20 ML VIAL IV ONE (09:11)
[2023-09-05] MEDS ORDERED: ceFAZolin 1,000 MG in SODIUM CHLORIDE 0.9% 1,000 ML IRRIGATION ONE (09:44)
[2023-09-05] MEDS ORDERED: LACTATED RINGERS 1,000 ML IV ONE (10:22)
--- NOTE | 2023-09-05 10:30 | P.OP ---
Date of Procedure: 09/05/23 Preoperative Diagnosis: Severe osteoarthritis right knee Postoperative Diagnosis: Severe osteoarthritis right knee Procedure(s) Performed: Right total knee arthroplasty Implants: Pereira [employer] Nephew Journey II CR Oxinium cruciate retaining femoral component size 5, right Pereira [employer] Nephew Journey nonporous tibial baseplate size 3, right Pereira [employer] Nephew Journey II, XLPE Deep Dished articular insert, size 11 mm, Size 3-4, right Pereira [employer] Nephew Journey Sandra II resurfacing patellar component, oval, 29 mm All components were cemented using Palacos R bone cement The articulation is Oxinium on polyethylene Anesthesia: spinal Surgeon: Rufino Peña Dining Room Attendant #1: Vicenta Guardado Estimated Blood Loss (ml): 50 Pathology: none sent Condition: stable Disposition: PACU Indications for Procedure: The patient's knee is end-stage, and conservative management has failed. The operation of knee replacement has been discussed at length in the office, as well as potential risks and complications. These are inclusive of, but not limited to: Infection, bleeding, scarring, discomfort, stiffness, blood vessel and nerve damage, need for further surgery, failure to relieve symptoms, persistence, recurrence, or worsening of problems, loosening, dislocation, wear, blood clot, pulmonary embolism, , gait dysfunction, stiffness, and other risks as discussed in the office. Patient elects to proceed and the consent form has been signed. Operative Findings: The operative findings are consistent with severe osteoarthritis of the right knee Description of Procedure: The patient was seen in the preoperative area, the consent was reviewed and the operative site was marked with a skin marker. The patient verified the procedure and the operative site. An adductor canal pain catheter and an iPACK block were placed by anesthesia in the preoperative area. The patient was then brought to the operating room and positioned on the operating room table in the supine position. Preoperative antibiotics and a gram of tranexamic acid were given intravenously. A spinal anesthetic was administered by the anesthesia department. Care was taken to make sure that all pressure points were adequately padded. A tourniquet was placed on the upper thigh and the lower extremity was prepped with ChloraPrep and draped in usual sterile fashion. A universal time-out was then performed which confirmed the patient's name, surgical site, ALLERGIES, and consent. The lower extremity was then exsanguinated and tourniquet was inflated to 250 mmHg. A standard anterior midline approach to the knee was performed. The skin and subcutaneous tissue were sharply dissected down to the patellar tendon. A medial parapatellar arthrotomy was then performed. The knee was then extended, the patellar was everted, and the knee was flexed. The infra-patellar fat pad was removed in order to enhance exposure. The anterior horns of both menisci were excised, and a release was performed to the posterior medial aspect of the knee. On gross visual inspection, there was complete loss of articular cartilage in the medial and patellofemoral joint spaces. There was also significant cartilage damage in the lateral compartment. There were multiple periarticular osteophytes globally about the knee which were then removed with a Ronguer. The femoral canal was then opened with the 9.5 mm intramedullary drill. The 8 mm intramedullary alla was then inserted into the femoral canal with the distal femoral cutting guide set for 5 of valgus. The distal femoral cutting block was then pinned in place. The intramedullary alla was then removed, and the distal femur was then cut. The cutting block was then removed and the cut was checked for symmetry. The resected bone was then measured to confirm the appropriate distal femoral resection. Next, the sizing guide was then placed and set for 3 external rotation based off of the epicondylar axis and [place]'s line. Pins were then placed and the drill holes, and the femur was sized with the sizing stylus. The pins were then removed, and the sizing guide was then removed. The spikes of the appropriate size femoral block was then placed into the predrilled holes, and malleted into place. Two 45 mm pins were then placed into the fixation holes on the cutting block. An cami wing was then used to ensure there would be no notching with the anterior cut. The anterior condyles were cut without notching. The anterior chord cut was then performed, followed by the posterior cut, posterior chamfer cut, and the anterior chamfer cut. The collateral ligaments were protected during the entire process. The cutting block was then removed. Any remaining bone and osteophytes were removed from the femur with a Ronguer. Attention was then directed to the tibia. The remaining ACL was removed with a Ronguer, and the tibia was then gently subluxed forward with a large bent knee retractor. Any remaining menisci were excised. The posterior lateral corner was cauterized in order to coagulate the lateral geniculate artery. The extra medullary tibial cutting guide was then placed, set for the appropriate rotation, slope, and depth of resection. The proximal tibia cutting guide was then pinned in place. Proximal tibia was then cut and sized. A curved osteotome was then used to remove any posterior osteophytes from the distal femur. The femoral trial was placed. A narrow saw blade was then used to remove the anterior intracondylar femoral bone. The CR notch trial was then placed. The tibial trial was placed with the appropriate-sized insert. The knee was able to fully extend and flex to 130 and was stable throughout all range of motion. The knee was then extended and the patella was everted. Patella was then measured, and then using an osteotomy guide, the patella was cut at the appropriate level. The patellar component was sized. The patellar drill guide was placed and the patella was drilled. The patella trial was then placed. The knee was then taken through range of motion with the patella trial and the patella tracked normally using the no thumbs technique. The patella trial was then removed. The knee was then flexed and lug holes were drilled through the femoral trial and the femoral trial was then removed. The tibial was then re- exposed, and the tibial broach guide was then pinned in place after it was set for the appropriate rotation to allow for the most coverage without overhang. The tibia was then reamed and broached. The femoral canal was plugged with autologous bone. The cut surfaces of bone were then irrigated with pulsatile lavage. The knee was also irrigated with Irrisept solution. The components were then opened, the cement was mixed. Cement was placed on the backside of the femoral, tibial, and patellar components. Cement was then applied to the tibial surface and pressurized into the surface using finger pressurization technique. The tibial component was then applied and excess cement was removed after it was impacted securely noted to be flush with the cut surface. In similar fashion, the cement was applied to the cut femoral surface, pressurized and using finger pressurization the component was impacted in place. Excess cement was removed. The polyethylene spacer was then implanted and locked into position. Patellar component was then applied in a similar technique and the patellar clamp was used to hold patella in place while the cement hardened. The knee was held in full extension while the cement hardened. Once the cement had fully hardened, the knee was reinspected. Any other cement extrusion was removed the final range of motion testing showed range of motion from 0-130 with excellent stability, both medial and laterally and appropriate alignment of the leg. Patella tracked normally. After the cemented hardened, the tourniquet was released and hemostasis was obtained. A second gram of transexamic acid was given intravenously. The knee was again irrigated. The knee was again taken through range of motion and found to be stable throughout all range of motion of 0-130, and the patella tracked normally. The fascia was then closed with 0 Vicryl followed by #2 strata fix suture. The subcutaneous tissue was closed with 3-0 Vicryl and 3-0 strata fix. Exofin glue was used for the skin and placed with the knee in flexion. After the glue had dried, and Optafoam silver impregnated dressing was applied. A lightly compressive dressing was applied using web roll and Roshan wrap. Patient was then transferred to the stretcher and taken to recovery room in stable condition. Sponge and needle counts were correct. The dental assistant MAX Higginbotham was required due the complexity surgery and the need for a skilled research assistant member. She assisted in positioning, draping, retraction, and closure of the wound.
--- NOTE | 2023-09-05 11:33 | XR ---
EXAMINATION TYPE: XR knee limited RT DATE OF EXAM: 09/05/2023 11:25 AM CLINICAL INDICATION:Female, 63 years old with history of Evaluation for Postop abnormality and alignm ent; [facility] COMPARISON: None. TECHNIQUE: XR knee limited RT; examined in Frontal, lateral and oblique projections. FINDINGS: Status post total knee arthroplasty changes with hardware in appropriate alignment and in tact. No evidence of fracture. Subcutaneous lucencies and lucencies within the joint consistent with surgical changes. IMPRESSION: Status post total knee arthroplasty changes with hardware intact and appropriate alignment. No fractu res identified.
[2023-09-05] MEDS: HYDROmorphone 0.5 MG/0.5 ML SYRINGE IVP PRN ×3 (15:05→20:18)
[2023-09-05] MEDS: SODIUM CHLORIDE 0.9% 1,000 ML IV SCH (15:52)
--- NOTE | 2023-09-05 17:12 | P.CONS ---
History of Present Illness - Reason for Consult Consult date: 09/05/23 Medical Management Requesting physician: Rufino Peña - History of Present Illness History of Presenting Illness: Patient is a resident 63-year-old female with a past medical history of fibromyalgia, restless leg syndrome, depression, and osteoarthritis. She is currently admitted under orthopedic surgery team status post elective right total knee arthroplasty secondary to her severe osteoarthritis of her right knee. We have been consulted for medical management throughout patient's hospitalization. Patient was seen and fully evaluated shortly after arrival to 1 from surgical procedure. Patient reports moderate postoperative pain right knee. She was just medicated and ice packs are in place. Patient denies having any headache, lightheadedness, dizziness, chest pain, palpitations, shortness of breath, or experiencing any focal numbness/tingling/weakness in her extremities. Patient is tolerating oral intake and denies having any postoperative nausea or vo miting. Patient denies history of DVT or PE. She reports previous orthopedic surgery with left knee replacement earlier this year. Review of systems: Pertinent positives and negatives as discussed in HPI, a complete review of systems was performed and all other systems are negative. Physical exam: Vital signs reviewed and stable. General: Nontoxic, no distress and appears stated age. Derm: Skin warm and dry, normal coloration for ethnicity. Head: Atraumatic, normocephalic and symmetric. Eyes: EOMs intact, no lid lag, and anicteric sclera Mouth: no lip lesions, mucus membranes moist Cardiovascular: regular rate and rhythm with normal S1S2, no murmur, positive posterior tibial pulses bilaterally, and cap refill < 2 seconds. Lungs: Respirations even, regular, and unlabored on room air. Lungs CTA bilaterally, no rhonchi, no rales, no wheezing, and no accessory muscle usage. Abdominal: soft, nontender to palpation, no guarding, no appreciable organomegaly Ext: No gross muscle atrophy, no edema, no contractures and sensation intact. Postoperative dressing/Roshan wrap and ice packs in place to right knee. Neuro: Speech clear, face symmetrical and CN II-XII grossly intact with no noted focal neuro deficits Psych: Alert and oriented to person, place, time, and situation. Appropriate and pleasant affect. Assessment and Plan of Care: Status post right total knee arthroplasty -Management per primary admitting orthopedic surgery team including DVT Prophylaxis, pain management, wound/dressing management, weightbearing, and PT/OT. Hypothyroidism -Continue daily medication regimen with levothyroxine 50 g each morning. Hypertension -Continue daily medication regimen with hydrochlorothiazide 25 mg daily, losartan 25 mg daily and Aldactone 25 mg nightly. Fibromyalgia Restless leg syndrome Depression Continue daily medication regimen with duloxetine 60 mg daily and Lamictal 300 mg twice daily. Data reviewed: Vital signs reviewed. Blood pressure 138/74, heart rate 77, respiratory rate 20, temp 98.5 high, and SpO2 of 90% on room air. Preoperative labs reviewed. Preoperative hemoglobin was 12.3. Will follow up on postoperative labs. Thank you for allowing us to participate in the care of this pleasant patient. Do not hesitate to contact us with questions. Someone can be reached from the [facility] hospitalist group all hours of the day at [phone] or via [employer]. Patient was seen independently by Nurse Practitioner. This document was prepared using [employer] dictation software. Please allow for errors in art historian while rare they do occur. I reviewed the documentation as provided by the PRIYA above, who is the original author of this note. I agree with the documented assessment and plan, with the following changes: none Past Medical History Past Medical History: Chest Pain / Angina, Fibromyalgia Additional Past Medical History / Comment(s): Restless Leg Syndrome, hx chest pain, was told it was not her heart. History of Any Multi-Drug Resistant Organisms: None Reported Past Surgical History: Cholecystectomy, Hysterectomy, Joint Replacement Additional Past Surgical History / Comment(s): Colonsoscopy, left knee replacement. Past Anesthesia/Blood Transfusion Reactions: No Reported Reaction Additional Past Anesthesia/Blood Transfusion Reaction / Comm: No blood transfusion hx. Past Psychological History: Depression Smoking Status: Never smoker Past Alcohol Use History: None Reported Past Drug Use History: None Reported - Past Family History Brother(s) Family Medical History: Cancer Additional Family Medical History / Comment(s): Lung cancer. Medications and Allergies Home Medications Medication Instructions Recorded Confirmed Type DULoxetine HCL [Cymbalta] 60 mg PO DAILY 03/14/23 09/05/23 History Artur Restful Leg(Ukn) 1 tab PO HS 03/14/23 09/05/23 History Levothyroxine Sodium [Synthroid] 50 mcg PO DAILY 03/14/23 09/05/23 History Losartan Potassium [Cozaar] 25 mg PO HS 03/14/23 09/05/23 History Montelukast [Singulair] 10 mg PO HS 03/14/23 09/05/23 History Spironolactone 25 mg PO HS 03/14/23 09/05/23 History hydroCHLOROthiazide 25 mg PO DAILY 03/14/23 09/05/23 History lamoTRIgine [LaMICtal] 300 mg PO BID 03/14/23 09/05/23 History Esomeprazole Magnesium [NexIUM] 40 mg PO DAILY #0 03/23/23 09/05/23 Rx traMADol HCL 50 mg PO BID 08/29/23 09/05/23 History Aspirin 325 mg PO BID #60 tab 09/05/23 Rx HYDROcodone/APAP 7.5-325MG [Palmer 1 - 2 tab PO Q6H PRN #32 tab 09/05/23 Rx 7.5-325] Sennosides [Senokot] 2 tab PO DAILY PRN #60 tablet 09/05/23 Rx Allergies Allergy/AdvReac Type Severity Reaction Status Date / Time Cephalosporins Allergy Rash/Hives Verified 09/05/23 07:16 methylprednisolone Allergy Rash/Hives Verified 09/05/23 07:16 [From Medrol] azithromycin AdvReac Rash/Hives Verified 09/05/23 07:16 Penicillins AdvReac Rash/Hives Verified 09/05/23 07:16 Physical Exam Osteopathic Statement: *. No significant issues noted on an osteopathic structural exam other than those noted in the History and Physical/Consult. Vitals: Vital Signs Temp Pulse Pulse Resp BP Pulse Ox 09/05/23 14:43 76 16 119/58 99 09/05/23 14:15 74 16 116/70 98 09/05/23 13:45 76 16 116/58 97 09/05/23 13:15 73 16 127/53 96 09/05/23 13:00 78 16 126/57 99 09/05/23 12:45 80 17 117/58 99 09/05/23 12:30 74 18 120/63 99 09/05/23 12:15 76 16 123/64 100 09/05/23 12:00 75 18 119/64 100 09/05/23 11:45 77 17 116/58 93 L 09/05/23 11:30 75 18 119/55 100 09/05/23 11:15 73 16 116/59 100 09/05/23 11:05 71 17 112/58 100 09/05/23 10:58 97 F L 72 16 115/56 98 09/05/23 08:42 82 16 117/56 100 09/05/23 07:21 97.3 F L 80 16 125/71 97 Intake and Output 09/05/23 09/05/23 09/05/23 06:59 14:59 22:59 Intake Total 1156 Output Total 60 Balance 1096 Intake: IV 1156 Output: Estimated Blood Loss 60 Other: Weight 106 kg
[2023-09-05] MEDS: CLINDAMYCIN 900 MG in DEXTROSE 5% IN WATER 50 ML IVPB SCH ×4 (17:14→20:22)
[2023-09-05] MEDS: ASPIRIN 325 MG TAB PO SCH (20:13)
[2023-09-05] MEDS: lamoTRIgine 100 MG TAB PO SCH (20:13)
[2023-09-05] MEDS ORDERED: MONTELUKAST 10 MG TAB PO SCH (21:00)
[2023-09-05] MEDS ORDERED: SPIRONOLACTONE 25 MG TAB PO SCH (21:00)
[2023-09-05] MEDS ORDERED: SENNOSIDES-DOCUSATE SODIUM 1 EACH TAB PO SCH (21:00)
[2023-09-05] MEDS ORDERED: LOSARTAN 25 MG TAB PO SCH (21:00)
[2023-09-05] MEDS: HYDROcodone/APAP 7.5-325MG 1 EACH TAB PO PRN (23:55)
[2023-09-06] MEDS: HYDROmorphone 0.5 MG/0.5 ML SYRINGE IVP PRN (03:03)
[2023-09-06] MEDS: SODIUM CHLORIDE 0.9% 1,000 ML IV SCH (03:26)
[2023-09-06] MEDS: HYDROcodone/APAP 7.5-325MG 1 EACH TAB PO PRN ×2 (05:59→11:48)
[2023-09-06] MEDS ORDERED: LEVOTHYROXINE 50 MCG TAB PO SCH (06:30)
[2023-09-06] MEDS ORDERED: PANTOPRAZOLE 40 MG TABLET PO SCH (07:30)
[2023-09-06 07:49] VITALS: PULSE 72
--- NOTE | 2023-09-06 08:47 | P.DS ---
Providers Expected date of discharge: 09/06/23 Attending physician: Rufino Peña Consults: 09/05/23 08:52 Consult Physician Routine Consulting Provider: Jeri Allen Consult Reason/Comments: medical management Do you want consulting provider notified?: Yes Primary care physician: Essence Jhaveri MD - Discharge Diagnosis(es) (1) Osteoarthritis of right knee Current Visit: Yes Status: Acute (2) S/P total knee arthroplasty Current Visit: Yes Status: Acute Hospital Course: This is a 63-year-old female with known history of degenerative arthritis of the right knee. The patient presented for evaluation as an outpatient. After discussion and consideration patient elects to proceed with total knee arthroplasty. The patient is seen preoperatively by Dr. Peña and medically cleared for surgery by their primary care physician. Patient is admitted to [facility] on 09/05/2023 for total knee arthroplasty. The procedure is performed without complication or sequelae. The patient is doing well postoperatively. Labs and vital signs are stable on day of discharge. On day of discharge patient's knee incision is healing well. There is minimal erythema. There is no drainage noted at this time. There is minimal soft tissu e swelling to the knee. Patient has full foot and ankle motion without difficulty or pain. Calf is soft and nontender to palpation. Neurovascular status to the right lower extremity is intact. Patient is discharged home in good condition. Please see med rec for accurate list of home medications. Plan - Discharge Summary Discharge Rx Participant: No New Discharge Prescriptions: New Sennosides [Senokot] 2 tab PO DAILY PRN #60 tablet PRN Reason: Constipation Aspirin 325 mg PO BID #60 tab HYDROcodone/APAP 7.5-325MG [Hubbell 7.5-325] 1 - 2 tab PO Q6H PRN #32 tab PRN Reason: Pain No Action hydroCHLOROthiazide 25 mg PO DAILY Spironolactone 25 mg PO HS DULoxetine HCL [Cymbalta] 60 mg PO DAILY Esomeprazole Magnesium [NexIUM] 40 mg PO DAILY #0 traMADol HCL 50 mg PO BID Montelukast [Singulair] 10 mg PO HS Levothyroxine Sodium [Synthroid] 50 mcg PO DAILY lamoTRIgine [LaMICtal] 300 mg PO BID Losartan Potassium [Cozaar] 25 mg PO HS Artur Restful Leg(Ukn) 1 tab PO HS Discharge Medication List DULoxetine HCL [Cymbalta] 60 mg PO DAILY 03/14/23 [History] Artur Restful Leg(Ukn) 1 tab PO HS 03/14/23 [History] Levothyroxine Sodium [Synthroid] 50 mcg PO DAILY 03/14/23 [History] Losartan Potassium [Cozaar] 25 mg PO HS 03/14/23 [History] Montelukast [Singulair] 10 mg PO HS 03/14/23 [History] Spironolactone 25 mg PO HS 03/14/23 [History] hydroCHLOROthiazide 25 mg PO DAILY 03/14/23 [History] lamoTRIgine [LaMICtal] 300 mg PO BID 03/14/23 [History] Esomeprazole Magnesium [NexIUM] 40 mg PO DAILY #0 03/23/23 [Rx] traMADol HCL 50 mg PO BID 08/29/23 [History] Aspirin 325 mg PO BID #60 tab 09/05/23 [Rx] HYDROcodone/APAP 7.5-325MG [Hubbell 7.5-325] 1 - 2 tab PO Q6H PRN #32 tab 09/05/23 [Rx] Sennosides [Senokot] 2 tab PO DAILY PRN #60 tablet 09/05/23 [Rx] Follow up Appointment(s)/Referral(s): Rufino Peña DO [Doctor of Osteopathic Medicine] - 2 Weeks Activity/Diet/Wound Care/Special Instructions: Weightbearing as tolerated with a walker. CPM 5-6h daily as tolerated. Leave dressing intact. Dressing may be removed by home care nurse or by patient in 7 days. Then change dressing twice daily until follow up. May shower with initial dressing intact and after removal. If dressing become saturated, please remove. Recommend use of compression stockings daily until follow up to help prevent swelling and blood clots. May remove at night before sleeping. Please take aspirin 325mg twice daily for 30 days to prevent blood clots. Please follow up with [facility] and call with any questions or concerns, . Discharge Disposition: HOME WITH HOME HEALTH SERVICES
[2023-09-06] MEDS: ASPIRIN 325 MG TAB PO SCH (08:51)
[2023-09-06] MEDS: lamoTRIgine 100 MG TAB PO SCH (08:51)
[2023-09-06] MEDS ORDERED: KETOROLAC 15 MG/ML 1 ML VIAL IVP PRN (08:58)
[2023-09-06] MEDS ORDERED: DULoxetine HCL 60 MG CAPSULE.DR PO SCH (09:00)
[2023-09-06] MEDS ORDERED: hydroCHLOROthiazide 25 MG TAB PO SCH (09:00)
--- NOTE | 2023-09-06 09:32 | P.PN ---
Progress Note - Text Progress Note Date: 09/06/23 patient was seen and evaluated at bedside. Status post postoperative day 1 for right-sided total knee arthroplasty patient had adductor canal catheter for postop pain control. Patient rated pain at rest 2 out of 10 in severity. Patient describes pain is aching, throbbing type on the sides of the knee and back of the knee. Patient started walking with support. With activity patient pain levels are 5 out of 10 in severity. With the help of oral pain medications pain levels are tolerable. Patient denied any weakness/ numbness in lower extremities. patient denied any fever, pain over the catheter site. Physical exam: Patient vital signs stable Patient is alert awake oriented 3 responding to all questions appropriately Examination of the catheter site showed dressing intact, no leaking fluid around the catheter, no redness, no tenderness over the catheter insertion area. plan: status post postoperative day 1 for right-sided total knee arthroplasty with adductor canal catheter for pain control. Patient was discussed to continue the medication at the rate of 10 mL per hour until the pump is completely empty and instructed the patient how to discontinue the catheter.
[2023-09-06 10:55] LABS: Basophils # (A) 0.03 X 10*3/uL (0.00-0.10); Basophils % (A) 0.3 %; Eosinophils # (A) 0.07 X 10*3/uL (0.04-0.35); Eosinophils % (A) 0.7 %; HCT 32.5 % (37.2-46.3); HGB 9.8 g/dL (12.0-15.0); Lymphocytes # (A) 1.69 X 10*3/uL (0.90-5.00); MCH 26.5 pg (27.0-32.0); MCHC 30.2 g/dL (32.0-37.0); MCV 87.8 FL (80.0-97.0); Mean Platelet Volume 10.6 FL (9.5-12.2); Monocytes # (A) 0.97 X 10*3/uL (0.20-1.00); Monocytes % (A) 10.3 %; NRBC Per 100 WBC 0 X 10*3/uL (0.00-0.01); Neutrophils # (A) 6.59 X 10*3/uL (1.80-7.70); Neutrophils % (A) 70.1 %; Platelet Count 263 X 10*3/uL (140-440); RDW 15.9 % (11.5-14.5); WBC 9.41 X 10*3/uL (4.50-10.00)
[2023-09-06 11:12] LABS: ALT 12 U/L (8-44); AST 13 U/L (13-35); Albumin 3.7 g/dL (3.8-4.9); Albumin/Globulin Ratio 1.61 Ratio (1.60-3.17); Alkaline Phosphatase 120 U/L (41-126); BUN/Creat Ratio 11.89 Ratio (12.00-20.00); Blood Urea Nitrogen 10.7 mg/dL (9.0-27.0); Calcium 9.2 mg/dL (8.7-10.3); Carbon Dioxide 27.5 mmol/L (21.6-31.8); Chloride 98 mmol/L (96-109); Globulin 2.3 g/dL (1.6-3.3); Glucose 116 mg/dL (70-110); Magnesium 1.9 mg/dL (1.5-2.4); Potassium 3.3 mmol/L (3.5-5.5); Sodium 137 mmol/L (135-145); Total Bilirubin 0.3 mg/dL (0.3-1.2)
[2023-09-06 14:15] VITALS: BP 132/70; RESP 19; TEMP 98.6
[2023-09-06] MEDS ORDERED: POTASSIUM CHLORIDE ER 20 MEQ TAB.ER PO STA (15:35)
--- NOTE | 2023-09-06 15:49 | P.PN ---
Subjective Progress Note Date: 09/06/23 History of Presenting Illness: Patient is a resident 63-year-old female with a past medical history of fibromyalgia, restless leg syndrome, depression, and osteoarthritis. She is currently admitted under orthopedic surgery team status post elective right total knee arthroplasty secondary to her severe osteoarthritis of her right knee. We have been consulted for medical management throughout patient's hospitalization. Physical exam: Pt is postoperative day one and appears to be doing well. Patient ambulating with physical therapy. She reports mild postoperative pain but feels that she is doing very well compared to her last knee replacement. Patient reports she is more prepared at this time and feels good. Patient denies having any needs or complaints. Plan is for discharge today. Vital signs reviewed and stable. General: Nontoxic, no distress and appears stated age. Derm: Skin warm and dry, normal coloration for ethnicity. Head: Atraumatic, normocephalic and symmetric. Eyes: EOMs intact, no lid lag, and anicteric sclera Mouth: no lip lesions, mucus membranes moist Cardiovascular: regular rate and rhythm with normal S1S2, no murmur, positive posterior tibial pulses bilaterally, and cap refill < 2 seconds. Lungs: Respirations even, regular, and unlabored on room air. Lungs CTA bilater ally, no rhonchi, no rales, no wheezing, and no accessory muscle usage. Abdominal: soft, nontender to palpation, no guarding, no appreciable organomegaly Ext: No gross muscle atrophy, no edema, no contractures and sensation intact. Postoperative dressing/Roshan wrap and ice packs in place to right knee. Neuro: Speech clear, face symmetrical and CN II-XII grossly intact with no noted focal neuro deficits Psych: Alert and oriented to person, place, time, and situation. Appropriate and pleasant affect. Assessment and Plan of Care: Acute postoperative blood loss anemia -Postoperative hemoglobin 9.8 with preoperative hemoglobin of 12.3. This is an expected and normal finding, hemoglobin is stable no signs of active bleeding, no need for intervention or further testing. Hypokalemia -Potassium 3.3. Orders placed for K Dur 40 mEq by mouth 1 dose. Status post right total knee arthroplasty -Management per primary admitting orthopedic surgery team including DVT Prophylaxis, pain management, wound/dressing management, weightbearing, and PT/OT. Hypothyroidism -Continue daily medication regimen with levothyroxine 50 g each morning. Hypertension -Continue daily medication regimen with hydrochlorothiazide 25 mg daily, losartan 25 mg daily and Aldactone 25 mg nightly. Fibromyalgia Restless leg syndrome Depression -Continue daily medication regimen with duloxetine 60 mg daily and Lamictal 300 mg twice daily. Data reviewed: Vital signs reviewed. Blood pressure 138/74, heart rate 77, respiratory rate 20, temp 98.5 high, and SpO2 of 90% on room air. Postoperative labs reviewed. CBC showing acute postoperative blood loss anemia with hemoglobin of 9.8. Hemoglobin is stable no signs of active bleeding, no need for further intervention. BMP unremarkable with the exception of potassium was 3.3. This was replaced. Magnesium 1.9. Medically, patient is stable for discharge once cleared by primary admitting orthopedic surgery team. Thank you for allowing us to participate in the care of this pleasant patient. Do not hesitate to contact us with questions. [facility] can be [facility] all hours of the day at [phone] or via [employer]. Patient was seen independently by Nurse Practitioner. This document was prepared using [employer] dictation software. Please allow for errors in [employer] while rare they do occur. Christophe Lee NP rendered care for this patient independently, reviewed the findings and plan as documented in the note above. I did not physically speak with or examine the patient on this date. Objective - Vital Signs Vital signs: Vital Signs Temp 98.8 F 09/06/23 07:21 Pulse 72 09/06/23 07:21 Resp 17 09/06/23 07:21 BP 113/71 09/06/23 07:21 Pulse Ox 96 09/06/23 07:21 FiO2 Intake & Output 09/05/23 09/06/23 09/06/23 18:59 06:59 18:59 Intake Total 1156 Output Total 60 Balance 1096 Weight 106 kg Intake: IV 1156 Output: Estimated Blood Loss 60 Other: # Voids 1 3 - Labs CBC & Chem 7: 09/06/23 06:42 09/06/23 06:42
== END 2023-09-06 15:30 | disposition home health service (06) ==
LOC: OR 06:49 → 4SSUR 10:54 → OR 09-06 15:30
PROVIDERS: ATTEND Orthopaedic Surgery
DX: M17.11 Unilateral primary osteoarthritis, right knee (principal); I10 Essential (primary) hypertension; E78.5 Hyperlipidemia, unspecified; F32.A Depression, unspecified; M79.7 Fibromyalgia; E06.3 Autoimmune thyroiditis; K21.9 Gastro-esophageal reflux disease without esophagitis; Z77.120 Contact with and (suspected) exposure to mold (toxic); Z88.0 Allergy status to penicillin; Z88.1 Allergy status to other antibiotic agents; Z91.018 Allergy to other foods; Z98.51 Tubal ligation status; Z90.710 Acquired absence of both cervix and uterus; Z90.49 Acquired absence of other specified parts of digestive tract; Z98.890 Other specified postprocedural states; Z79.51 Long term (current) use of inhaled steroids; Z79.899 Other long term (current) drug therapy
CPT/HCPCS: 97161; 64999; 64448; 80053; 83735; 85025; 73560; 27447; C1713; C1776; C1751; J2250; J1100; J2405; J3010; J1170 ×3; J2795; J1885; J0736